=== PATIENT | male | born 1990 | race Hispanic/Latino ===

== ENCOUNTER 2016-07-16 08:46 | Day surgery (SDC) | payer OTHER ==
[~2016-07-16] VITALS: Ht 182.9 cm; Wt 98.0 kg
[2016-07-16] VITALS (11 sets, daily range): BP systolic 109–150; BP diastolic 57–80; PULSE 77–89; RESP 11–18; O2SAT 98–100
[~2016-07-16 08:46] MED LIST: CeFAZolin Inj 2 GM in IV Premix 1 EACH IV SCH; NPR500T PO
[2016-07-16] MEDS ORDERED: fentaNYL-PF 50 mCg/mL 2 mL Inj ONE (08:47)
[2016-07-16] MEDS ORDERED: Ondansetron 2 mg/mL 2 mL Inj ONE (08:47)
[2016-07-16] MEDS ORDERED: Propofol 10,000 mCg/mL 20 mL Inj ONE (08:47)
[2016-07-16] MEDS ORDERED: Dexamethasone 4 mg/mL Inj ONE (08:47)
[2016-07-16] MEDS: Lactated Ringer's 1,000 ML IV SCH ×2 (08:58→11:14)
[2016-07-16] MEDS ORDERED: Lactated Ringer's 1,000 ML IV SCH (10:39)
[2016-07-16] MEDS ORDERED: Lactated Ringer's 500 ML IV PRN (10:39)
--- NOTE | 2016-07-16 10:39 | PCM.HPANE ---
Patient Data Surgeon Admitting Provider: Attending Provider:Steffen Gibbs MD Primary Care Physician:Clinic,[facility] Residency Other Provider: Reason for Visit Male Gynecomastia Ht/WT & BMI Height (Feet): 6 Height (Inches): 0 Weight (Kilograms): 97.06 Body Mass Index 28.00 Allergies Coded Allergies: shellfish derived (Verified Allergy, Unknown, 02/10/16) Past Anesthesia History Anesthesia History: Denies:: Anesthesia Reactions (no prior surgery) Diabetes History Hx Diabetes?: No Medications Hypertension Medication: No Home Meds Incl Beta Ailyn: No Reported Medications Naproxen 500 Mg [id number] Mg PO BID PRN For Pain Ref 0 07/15/16 Discontinued Scripts Naproxen 500 Mg [id number] Mg PO BID PRN For Pain #14 TABLET Prov:SanjayTera Benavides DO 02/10/16 History History of ENT Problems?: No Hx of Heart Problems?: No Hx of Respiratory Problem?: No Respiratory History: Denies:: Oxygen Administration Use of C-PAP Machine Hx Neurologic Problems?: No Hx of GI Problems?: No Hx of Problems?: No Male Hx: Denies:: Prostate Problems Hx Musculoskeletal Problems?: No Hx of Psycho/Social Problems?: No Hx Surgeries?: No Hx Any Other Health Problems?: No Other History: Denies:: Cancer Thyroid Disease Hx Diabetes: No Hx Alcohol Use: NoHx Substance Use: No Smoking Status: Never Smoker Have You Smoked inLast 12 mo: No Stop/Bang S-Snoring: Do You Snore Loudly: No T-Tired: feel tired, fatigued: Yes O-Obsered: Observed not breath: No P-Blood Pressure: treated: No B- Body Mass Index > 35 kg/m2: No A- Age over 50: No N- Neck Large Circumference: No G- Gender Male: Yes ZOHAIB Total Score: 2 ZOHAIB Risk Assessment: Low Risk, <3 Yes Risk Assessment Category Category 1A: Patient has history of documented sleep apnea, and HAS NOT received any narcotic, sedative or anesthesia administration during this stay. Category 1B: Patient has history of documented sleep apnea, and HAS received any narcotic , sedative or anesthesia administration during this stay Category 2: Patient has SUSPECTED Obstructive Sleep Apnea, and HAS received any narcotic , sedative or anesthesia administration during this stay. Category 3: Patient has SUSPECTED Obstructive Sleep Apnea and HAS NOT received narcotic, sedative or anesthesia administration during this stay. Category 4: Outpatient in Procedural Areas with known sleep apnea or who screen positive for High Risk via the STOP/BANG questionnaire. Exam Exam General Appearance: Alert, Oriented X3, Cooperative, No Acute Distress HEENT/AIRWAY: MP 1 Lungs: Clear to Auscultation, Normal Air Movement Heart: Exam Unremarkable, Regular Rate/Rhythm, No Murmurs/Rubs/Gallops Meds/Labs/Diagnostics Admission Meds Current Medications Lactated Ringer's (Lr) 1,000 ml @ 120 mls/hr Q8H20M IV Last administered on t 08:58; Start 07/16/16 at 05:00; Stop 07/16/16 at 13:19 Plan Impression Patient chart reviewed, patient interviewed and anesthestic plan with risks, benefits, and alternatives discussed, and informed consent obtained. ASA Physical Status: ASA1 Normal Healthy Anesthetic Plan: GA Bene/Risks/Altern/Consents: Yes HP Complete Prior to Induction: Yes Sharif Potts MD Jul 16, 2016 09:15
[2016-07-16] MEDS ORDERED: hydrALAZINE 20 mg/mL Inj IVPUSH PRN (10:40)
[2016-07-16] MEDS ORDERED: EPHEDrine Sulfate 50 mg/mL Inj IVPUSH PRN (10:40)
[2016-07-16] MEDS ORDERED: Phenylephrine 10,000 mCg/mL Inj IVPUSH PRN (10:40)
[2016-07-16] MEDS ORDERED: EPHEDrine Sulfate 50 mg/mL Inj IM PRN (10:40)
[2016-07-16] MEDS ORDERED: Atropine 0.4 mg/mL Inj IVPUSH PRN (10:40)
[2016-07-16] MEDS ORDERED: Labetalol 5 mg/mL 4 mL Inj IV PRN (10:40)
[2016-07-16] MEDS ORDERED: Ondansetron 2 mg/mL 2 mL Inj IVPUSH PRN (10:40)
[2016-07-16] MEDS ORDERED: fentaNYL-PF 50 mCg/mL 2 mL Inj IVPUSH PRN (10:40)
[2016-07-16] MEDS ORDERED: HYDROmorphone 1 mg/mL Inj IVPUSH PRN (10:40)
[2016-07-16] MEDS ORDERED: MetoCLOpramide 5 mg/mL 2 mL Inj IVPUSH PRN (10:40)
[2016-07-16] MEDS ORDERED: hydrOXYzine Inj 25 MG/1 mL SDV IM PRN (10:40)
[2016-07-16] MEDS ORDERED: Bupivacaine-MPF 0.5% 30 mL Inj INFILTRATE ONE (11:14)
[2016-07-16] MEDS ORDERED: HYDROcodone-APAP 5-325 mg Tablet PO PRN (12:00)
--- NOTE | 2016-07-16 12:06 | PCM.SURGOP ---
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 He immediately developed recurrence following surgery with tender subareolar tissue, which had increased in size. The pain was worse on the right. He had bilateral mammograms, which were normal. His thyroid function was normal. After discussion of risks and benefits, he agreed to proceed with bilateral mastectomy for gynecomastia. Findings: The tissue excised on the right measured 7 x 5 x 3 cm, and on the left measured 6 x 6 x 2 cm. Procedure Details After smooth induction of general anesthesia with an LMA, he was placed in the supine position with both arms out, and was prepped and draped in wide sterile fashion. A procedural pause was performed according to the SCOAP checklist, and all were found to be in agreement. His prior circumareolar incisions inferiorly with reopened sharply. Dissection was started on the right side first. The skin of the nipple areolar complex was elevated off the underlying breast tissue. Scar tissue and firm breast tissue was present, as well as some normal subcutaneous fat. Circumferential dissection was carried out with electrocautery down to the pectoralis fascia, which was resected. The right breast tissue was elevated off the underlying chest wall. It was oriented with suture, and sent for permanent pathology. On the left side, the skin of the nipple areolar complex was elevated off the underlying breast tissue. Circumferential dissection was carried out with electrocautery. The left breast tissue was elevated off the underlying chest wall, and pectoralis fascia was resected en bloc. That tissue was oriented with suture, and sent for permanent pathology. Hemostasis was adequate. The incisions were closed with interrupted deep dermal 3-0 Vicryl suture, and running 4-0 Vicryl subcuticular suture. Dermabond was applied to the skin as a dressing. At the end of the case all needle and sponge counts were correct 2. The patient was awakened from anesthesia without difficulty, and taken to the recovery room in satisfactory condition, having tolerated the procedure well. Complications There were no periprocedural complications identified. Surgical Specimen Removed: Yes Specimen sent to Pathology: Yes Surgical Specimen description: Right breast tissue. Left breast tissue. Anesthetic Plan: GA Grafts, Implants: None Output, Estimated Blood Loss: 10 Blood Administration during penaloza: No Drains: None Catheters: None copies to: Ann Wyatt MD, Joshua D MD Jul 16, 2016 12:06
--- NOTE | 2016-07-16 12:08 | PCM.DISURG ---
Surgical Discharge Instruction Date of Service Jul 16, 2016 Dates of Hospitalization Date of Hospital Admission Providers Admitting Physician: [facility] Attending Physician: Steffen Gibbs MD Discharge Diagnosis Discharge Diagnosis Recurrent bilateral gynecomastia Post Operative diagnosis Same Diet Discharge Diet: No restrictions Activity Discharge Activity-General: Other (no upper body weight lifting for 2 weeks) Dressing and Incisional Care Dressing Instructions: Dermabond will peel left gradually Hygiene: May shower Follow Up Plan Follow Up Plan In the general surgery [place] postoperative clinic in 2 weeks Call your provider for: Fever (over 101.5), Discharge @ incision, pus discharge Steffen Gibbs MD Jul 16, 2016 12:08
--- NOTE | 2016-07-16 12:35 | PCM.ANEP2 ---
Post Anesthesia Evaluation ASA/CMS Post Anesthesia VS in Patient's Normal Range?: Yes Resp Stable; Airway Patent?: Yes CV Function & Hydration Stable: Yes Mental Status Recovered?: Yes Pain control Satisfactory?: Yes N/V Control Satisfactory?: Yes Sharif Potts MD Jul 16, 2016 12:35
--- NOTE | 2016-07-16 12:35 | PCM.ANEP1 ---
Post Anesthesia Phase 1 PACU Phase 1 Assessment Date of Service: Jul 16, 2016 Vital Signs Vital Signs Date Time Temp Pulse Resp B/P Pulse Ox O2 Delivery O2 Flow Rate FiO2 07/16/16 12:30 77 13 126/64 99 Room Air 07/16/16 12:25 78 16 125/60 100 Simple Mask 8 07/16/16 12:20 36.6 82 14 109/57 100 Simple Mask 8 07/16/16 12:15 86 14 119/66 100 Simple Mask 8 07/16/16 12:13 83 14 118/63 100 Simple Mask 8 07/16/16 10:22 36.5 83 16 141/78 98 Room Air Anesthetic Administered: GA Level of Alertness: Sleepy, easy to arouse ANGLIN's with Equal Strength: Yes Pain: No Nausea or Vomiting: No Airway Device: Oralpharangeal Airway Oxygen Delivery: Simple Mask Lungs: Clear to Auscultation, Normal Air Movement Sharif Potts MD Jul 16, 2016 12:35
--- NOTE | 2016-07-20 11:43 | PATH ---
SURGICAL PATHOLOGY Attending Physician:Renée Ventura CASE STATUS: Signed Out PATIENT NAME: REBECCA DIXON JR PID: [id number] : 1990 DATE COLLECTED:07/16/2016 21:12 SPECIMEN: 1: Breast Reduction 2: Breast Reduction CLINICAL HISTORY: MALE GYNECOMASTIA 1). RIGHT BREAST TISSUE 2). LEFT BREAST TISSUE FINAL DIAGNOSIS: 1.RIGHT BREAST TISSUE, 43 GRAMS: GYNECOMASTIA. NEGATIVE FOR ATYPIA OR MALIGNANCY. 2LEFT BREAST TISSUE, 31 GRAMS: GYNECOMASTIA. NEGATIVE FOR ATYPIA OR MALIGNANCY. ICD10 CODE N62 GROSS DESCRIPTION: The specimens are received in formalin, labeled with the patient's name, and sublabeled as the following: (1) Rt breast tissue; (2) left breast tissue. (1) The specimen consists of a piece of adipose tissue (43 g, 3.0 cm AP, 4.5 cm SI, 6.8 cm ML) with no overlying skin. The specimen is oriented with 2 black sutures (short-superior, long-lateral). No localization wire is present. The tissue is fatty and focally fibrous. No nodules, masses or lesions are identified. Ink code: purple-anterior; yellow-posterior; black-superior; orange-inferior; green-medial; blue-lateral. Section code: (1A-1D) tissue, serially sectioned, motor vehicle field representative. (2) The specimen consists of a piece of adipose tissue (31 g, 1.5 cm AP, 6.2 cm SI, 5.4 cm ML) with no overlying skin. The specimen is oriented with 2 black sutures (short-superior, long-lateral). No localization wire is present. The tissue is fatty and focally fibrous. No nodules, masses or lesions are identified. Ink code: purple-anterior; yellow-posterior; black-superior; orange-inferior; green-medial; blue-lateral. Section code: (2A-2D) tissue, serially sectioned, motor vehicle field representative. Note: Approximate total fixation time in formalin for both specimens-60 hours and 30 minutes calculated using a collection date of July 16, 2016 with times in fixative of 1132 at 1151 respectively. 07/17/16 JM MICRO DESCRIPTION: See diagnosis. ICD-9 CODES: CPT CODES: 1: 44578 2: 89636 Electronically Signed Out Kaleigh Waddell MD [facility] [address], [place] [address] Technical component performed at [facility], [address], [place], [address]
== END 2016-07-16 23:59 | disposition home or self-care (01) ==
LOC: SAS 08:46
PROVIDERS: ATTEND Student in an Organized Health Care Education/Training Program
DX: N62 Hypertrophy of breast (principal)
CPT/HCPCS: 19300; J0690; J1100; J2250; J2405; J7120